=== PATIENT | female | born 1945 | race Caucasian/White ===

== ENCOUNTER → 2023-08-02 | Outpatient (CLI) | payer MEDICARE, BC ==
[2023-08-02] VITALS (11 sets, daily range): BP systolic 118–162; BP diastolic 65–87; PULSE 70–82; TEMP 97.5
[~2023-08-02] VITALS: Ht 162.6 cm; Wt 54.4 kg
[~2023-08-02] MED LIST: ATIVAN 0.50.5 MG/TAB PO; BETAPACE 80MG80 MG PO; CALCIUM 600 MG1 EAC2 PO; ELIQUIS 2.5 PO; GLUCOPHAGE XR750 MG PO; JARDIANCE25 PO; PRANDIN1 MG PO; PROBIOTIC BLEN1 EACH PO; PROTONIX 40MG T40 MG PO; SYNTHROID0.05 MG/TA PO; VITAMIN C500 MG PO
[2023-08-02 08:16] LABS: HEMATOCRIT 39.6 % (37.0-47.0); MEAN CELL VOLUME 92 fl (80.0-100.0); MEAN CORPUSCULAR HEMOGLOBIN 30 pg (27-31); MEAN CORPUSCULAR HGB CONC 33 g/dl (33.0-37.0); MEAN PLATELET VOLUME 10.2 fl (7.4-10.4); PLATELET COUNT 283 K/mm3 (130-400); RED BLOOD COUNT 4.29 M/mm3 (4.10-5.30); REDCELL DISTRIBUTION WIDTH-CV 14.2 % (11.5-14.5)
--- NOTE | 2023-08-02 08:18 | NUR ---
Pt to ct per cart. Pt onto ct table in prone position. Monitors applied and O2 on at 2l/nc.
--- NOTE | 2023-08-02 08:38 | NUR ---
Specimens obtained by Dr Mueller and specimen given to nurse who gave to Karlene from the lab to prepare the specimens.
[2023-08-02 08:45] LABS: BAND 4 % (0-10); BASOPHIL 1 % (0-2); EOSINOPHIL 3 % (0-4); LYMPHOCYTE 7 % (20.0-51.0); MYELOCYTE 1 % (0-0); NEUTROPHILS 81 % (42.0-75.2); PLATELET ESTIMATE NORMAL (NORMAL)
== END ==
LOC: COL.RAD 07:23
PROVIDERS: Internal Medicine
DX: D72.829 Elevated white blood cell count, unspecified (principal); I48.91 Unspecified atrial fibrillation; E11.9 Type 2 diabetes mellitus without complications; I10 Essential (primary) hypertension
CPT/HCPCS: C1830; J2250; J3010